=== PATIENT | female | born 1990 | race Caucasian/White ===

== ENCOUNTER 2016-07-24 16:42 | Inpatient (IN) | payer OTHER ==
[~2016-07-24] VITALS: Ht 160 cm; Wt 69.5 kg
[2016-07-24 18:31] VITALS: Ht 160 cm; Wt 69.5 kg
[2016-07-24 18:32] VITALS: BP 106/69; PULSE 85; RESP 16
[2016-07-24] MEDS ORDERED: ACETAMINOPHEN/CODEINE #3 TAB PO PRN (19:00)
[2016-07-24] MEDS ORDERED: BUTORPHANOL 2 MG INJ IV PRN (19:00)
[2016-07-24] MEDS ORDERED: OXYTOCIN 30 UNITS/LR 500 ML IV PRN (19:00)
[2016-07-24] MEDS ORDERED: METHYLERGONOVINE 0.2 MG INJ IM PRN (19:00)
[2016-07-24] MEDS ORDERED: LIDOCAINE 1% (MPF) 30 ML INJ INJ PRN (19:00)
[2016-07-24] MEDS ORDERED: MISOPROSTOL 200 MCG TAB PR PRN (19:00)
[2016-07-24] MEDS ORDERED: OXYTOCIN 30 UNITS/LR 500 ML IV SCH ×2 (19:00)
[2016-07-24] MEDS ORDERED: CARBOPROST 250 MCG INJ IM PRN (19:00)
[2016-07-24] MEDS ORDERED: IBUPROFEN 600 MG TAB PO PRN (19:00)
[2016-07-24] MEDS ORDERED: LACTATED RINGER'S 1,000 ML IV PRN (20:00)
--- NOTE | 2016-07-24 21:04 | HP ---
Date/Time of Note Date/Time of Note DATE: 07/24/16 TIME: 21:00 OB - History Hx of Present Chief Complaint: Non-reactive NST Estimated Due Date: July 28, 2016 : 3 Para: 2 Spontaneous : 0 Therapeutic : 0 Care: Good Care Ultrasounds: Normal mid trimester US Obstetrical Complications: None Medical Complications: None Past Family/Social History * Past Medical, Surgical, Family and Obstetric Histories reviewed from chart. GBS Status: Negative OB Admission Exam Vital Signs Vital Signs Vital Signs Date Time Temp Pulse Resp B/P Pulse Ox O2 Delivery O2 Flow Rate FiO2 07/24/16 18:32 98.8 85 16 106/69 Physical Exam HEENT: WNL Heart: Rhythm Normal Lungs: Clear Abdomen: WNL Extremities: Normal Cervical Dilatation: None Membranes: Intact Heart Rate: 120's Accelerations: Accelerations Present Decelerations: No Decelerations Varibility: Minimum OB Assessment/Plan Reason for admission: other (Non Reactive NST) Plan: Other (Admit, monitor, consider induction) AZUL CAMPBELL MD July 24, 2016 21:04
[2016-07-24] MEDS: LACTATED RINGER'S 1,000 ML IV SCH (21:10)
[2016-07-24 23:59] LABS: ADD SCAN DIFF NO
[2016-07-25 00:01] LABS: BASOPHILS % 0.2 % (0.0-2.0); EOSINOPHILS # 0.2 10^3/ul (0.0-0.5); EOSINOPHILS % 1.9 % (0.0-7.0); HEMATOCRIT 29.9 % (37.0-47.0); HEMOGLOBIN 9.9 g/dl (12.0-16.0); LYMPHOCYTES # 2.1 10^3/ul (0.8-2.9); LYMPHOCYTES % 24.8 % (15.0-51.0); MEAN CORPUSCULAR HEMOGLOBIN 28.4 pg (29.0-33.0); MEAN CORPUSCULAR HGB CONC 33.1 g/dl (32.0-37.0); MEAN CORPUSCULAR VOLUME 85.9 fl (82.0-101.0); MEAN PLATELET VOLUME 10.2 fl (7.4-10.4); MONOCYTE # 0.5 10^3/ul (0.3-0.9); MONOCYTES % 5.7 % (0.0-11.0); NEUTROPHIL # 5.8 10^3/ul (1.6-7.5); NEUTROPHILS % 66.9 % (39.0-77.0); PLATELET COUNT 280 10^3/UL (140-415); RED BLOOD COUNT 3.48 10^6/ul (4.20-5.40); RED CELL DISTRIBUTION WIDTH 13.9 % (11.5-14.5); WHITE BLOOD COUNT 8.6 10^3/ul (4.8-10.8)
[2016-07-25 00:24] LABS: INR 0.91; PARTIAL THROMBOPLASTIN TIME 27.5 Sec (25.0-35.0); PROTIME 12.3 Sec (12.2-14.2)
[2016-07-25] MEDS: LACTATED RINGER'S 1,000 ML IV SCH ×3 (02:12→14:13)
[2016-07-25] MEDS ORDERED: GUAIFENESIN/DM 5ML CUP PO PRN (11:00)
--- NOTE | 2016-07-25 12:15 | RADRPT ---
PROCEDURE: OB ultrasound for biophysical profile CLINICAL INDICATION: Poor tone. TECHNIQUE: Multiple sonographic images of the pelvis were obtained. Transabdominal views of the g ravid uterus are available for review. The images were reviewed on a PACS workstation. COMPARISON: None FINDINGS: breathing movement = 2/2 tone = 2/2 motion = 2/2 GUI = 2/2 GUI = 13.7 cm Single live intrauterine . position is cephalic. The placenta is posterior. IMPRESSION: 1. Single live intrauterine gestation. 2. Biophysical profile = 8. 3. GUI = 13.7 cm. RPTAT: HH .Pilar Garza MD, Date Time Electronically viewed and signed by .Pilar Garza MD, MD on 07/25/2016 12:14 .G/
[2016-07-25] MEDS: MISOPROSTOL 25 MCG CAPSULE PO SCH ×2 (14:10→17:52)
[2016-07-25] MEDS ORDERED: MISOPROSTOL 25 MCG CAPSULE PO SCH (17:00)
[2016-07-25] MEDS ORDERED: ONDANSETRON 4 MG INJ ONE (22:35)
[2016-07-25] MEDS ORDERED: CITRIC ACID/SODIUM CITRATE 15 ML CUP ONE (22:35)
[2016-07-25] MEDS ORDERED: FENTAnyl 2MCG/ML-ROPIV 0.2% 100 ML ONE (22:43)
[2016-07-25] MEDS ORDERED: LACTATED RINGER'S 1,000 ML IV ONE (23:35)
[2016-07-26] MEDS ORDERED: ONDANSETRON 4 MG INJ IV ONE
[2016-07-26] MEDS ORDERED: DIPHENHYDRAMINE 50 MG INJ IV PRN
[2016-07-26] MEDS ORDERED: KETOROLAC 30 MG INJ IV PRN
[2016-07-26] MEDS ORDERED: FENTAnyl 2MCG/ML-ROPIV 0.2% 100 ML BAG EPI SCH
[2016-07-26] MEDS ORDERED: NALOXONE (0.4 MG/ML) INJ IV PRN
[2016-07-26] MEDS ORDERED: CITRIC ACID/NA CITRATE 30 ML CUP PO ONE
[2016-07-26] MEDS ORDERED: PROCHLORPERAZINE 10 MG INJ IV PRN
[2016-07-26] MEDS ORDERED: ONDANSETRON 4 MG INJ IV PRN
[2016-07-26] MEDS ORDERED: morphine 2 MG INJ IV PRN ×2
--- NOTE | 2016-07-26 00:25 | LDN ---
Date/Time of Note Date/Time of Note DATE: 07/26/16 TIME: 00:21 Delivery Summary Weeks of Gestation 39 weeks and 4 days Placenta Delivered: Spontaneously Meconium: none Episiotomy: No Perineal laceration: 1 Laceration repair: Second degree laceration repaired with 3-0 Vicryl and 2-0 chromic. Anesthesia type: Epidural Estimated blood loss: 300 Sponge & Needle done & correct: Yes All needle counts correct: Yes Any foreign bodies felt in the: No Problems: Infant Delivery Information Sex Infant Sex: female Apgars 1 Minute: 9 5 Minute: 9 Suctioning Nose & mouth suctioned at ivanna: Yes Delee suction performed: No Umbilical Cord Umbilical cord with: 3 Vessels Cord presentations: no nuchal cord Cord Blood was obtained: Yes Mother & Baby Disposition Disposition Mom & Baby to Maternity; Good: Yes AZUL CAMPBELL MD July 26, 2016 00:25
[2016-07-26] MEDS: LACTATED RINGER'S 1,000 ML IV* SCH ×2 (01:57→09:57)
[2016-07-26] MEDS ORDERED: ACETAMINOPHEN/CODEINE #3 TAB PO PRN (02:00)
[2016-07-26] MEDS ORDERED: CARBOPROST 250 MCG INJ IM PRN (02:00)
[2016-07-26] MEDS ORDERED: ACETAMINOPHEN 325 MG TAB PO PRN (02:00)
[2016-07-26] MEDS ORDERED: OXYTOCIN 30 UNITS/LR 500 ML IV PRN (02:00)
[2016-07-26] MEDS ORDERED: DIBUCAINE 1% 30 GM OINT PR PRN (02:00)
[2016-07-26] MEDS ORDERED: METHYLERGONOVINE 0.2 MG INJ IM PRN (02:00)
[2016-07-26] MEDS ORDERED: MISOPROSTOL 200 MCG TAB PR PRN (02:00)
[2016-07-26] MEDS ORDERED: LANOLIN 7 GM TUBE TOP PRN (02:00)
[2016-07-26 02:30] VITALS: BP 121/80; PULSE 54; RESP 18
[2016-07-26 03:43] VITALS: BP 129/88; PULSE 80; RESP 18
[2016-07-26] MEDS: WITCH HAZEL/GLYCERIN PAD PR PRN (03:44)
[2016-07-26] MEDS: BENZOCAINE 20% 56 ML SPRAY TOP PRN (03:44)
[2016-07-26] MEDS: IBUPROFEN 600 MG TAB PO SCH ×3 (06:23→18:11)
[2016-07-26 06:30] LABS: ADD SCAN DIFF NO
[2016-07-26 06:51] LABS: BASOPHILS % 0.2 % (0.0-2.0); EOSINOPHILS % 0.2 % (0.0-7.0); HEMATOCRIT 31.9 % (37.0-47.0); HEMOGLOBIN 10.4 g/dl (12.0-16.0); LYMPHOCYTES # 1.5 10^3/ul (0.8-2.9); LYMPHOCYTES % 11.9 % (15.0-51.0); MEAN CORPUSCULAR HEMOGLOBIN 28.1 pg (29.0-33.0); MEAN CORPUSCULAR HGB CONC 32.6 g/dl (32.0-37.0); MEAN CORPUSCULAR VOLUME 86.2 fl (82.0-101.0); MEAN PLATELET VOLUME 10.8 fl (7.4-10.4); MONOCYTE # 0.7 10^3/ul (0.3-0.9); MONOCYTES % 5.3 % (0.0-11.0); NEUTROPHIL # 10.6 10^3/ul (1.6-7.5); PLATELET COUNT 257 10^3/UL (140-415); RED CELL DISTRIBUTION WIDTH 13.8 % (11.5-14.5); WHITE BLOOD COUNT 12.9 10^3/ul (4.8-10.8)
[2016-07-26 08:45] VITALS: BP 121/70; PULSE 54; RESP 17
[2016-07-26] MEDS: SENNA/DOCUSATE NA (8.6MG/50MG) TAB PO SCH ×2 (08:49→21:33)
[2016-07-26 12:00] VITALS: BP 117/79; PULSE 64; RESP 17
[2016-07-26 17:30] VITALS: BP 121/72; PULSE 64; RESP 17
--- NOTE | 2016-07-26 18:19 | QN ---
Documentation Comment pt doing well ppd1 vss exam wnl a/p ppd1 continue care NANDA STONER MD July 26, 2016 18:19
[2016-07-26] MEDS ORDERED: SALINE 0.65% 45 ML NAS SPRAY NASAL PRN (18:30)
[2016-07-26 20:10] VITALS: BP_SYST 121; PULSE 67; RESP 18
[2016-07-27 04:10] VITALS: BP 111/78; PULSE 77; RESP 18
[2016-07-27] MEDS: IBUPROFEN 600 MG TAB PO SCH ×4 (05:43→17:30)
[2016-07-27 07:30] VITALS: BP 124/85; PULSE 60; RESP 18
[2016-07-27] MEDS: SENNA/DOCUSATE NA (8.6MG/50MG) TAB PO SCH ×2 (08:29→21:00)
--- NOTE | 2016-07-27 13:08 | DS ---
Date/Time of Note Date/Time of Note DATE: 07/27/16 TIME: 13:07 Obstetrical Discharge Record Final Diagnosis Final Diagnosis: Term delivered Vaginal Delivery Obstetrical Delivery: Spontaneous, Laceration, Repaired Complications Induction: Yes Condition on Discharge Physical Assessment Voiding: Yes Bowel Movement: Yes Breast: Soft, non-tender Fundus: Firm Calf Tenderness: No Patient Condition: Stable AZUL CAMPBELL MD July 27, 2016 13:08
[2016-07-27 16:55] VITALS: BP 123/83; PULSE 63; RESP 14
[2016-07-27 20:15] VITALS: BP 126/88; PULSE 67; RESP 19
[2016-07-28] MEDS: IBUPROFEN 600 MG TAB PO SCH ×3 (00:16→12:43)
[2016-07-28 05:08] VITALS: BP 123/78; RESP 20
[2016-07-28 08:00] VITALS: BP 122/71; PULSE 63; RESP 18
[2016-07-28] MEDS: SENNA/DOCUSATE NA (8.6MG/50MG) TAB PO SCH (09:00)
[2016-07-28] MEDS ORDERED: DIPHTH/TET/ACEL PERTUSS (ADULT) 0.5 ML VIAL IM* ONE (09:00)
[2016-07-28] MEDS: BENZOCAINE 20% 56 ML SPRAY TOP PRN (12:43)
[2016-07-28] MEDS: WITCH HAZEL/GLYCERIN PAD PR PRN (12:44)
--- NOTE | 2016-07-28 21:41 | NSTRPT ---
NST Information Datetime Report Generated by CPN: 07/28/2016 21:41 Datetime: 07/24/2016 13:13 NST Information EGA: 39.3 Test Number: 5 Time on Monitor: 07/24/2016 13:30 Time off Monitor: 07/24/2016 15:52 NST Duration (Min): 142 Reason for NST: Other Reason for NST Other: Low Unconjugated Estriol Test and Monitor Explained: Monitor Explained; Test Explained; Verbalized Understanding Pulse: 80 Resp: 18 SBP: 106 DBP: 67 Test Evaluation NST Interventions: PO Hydration; Food Given; Reposition Patient; Acoustic Stimulation Patient States Movement: Decreased Contraction Frequency: occasional FHR Baseline : 125 Variability: Moderate 6-25bpm Accelerations: 15X15 Decelerations: None FHR Category: Category I NST Results: Reactive Provider Notified: Dr Tong paged [phone] Comments: To u/s, Report given to Dr Tong that FHTs are reactive after two hours of monitoring, that pt is complaining of head congestion and emesis today. Electronically Signed By E-Signature: with User ID: [id number] Datetime: 07/21/2016 13:03 NST Information EGA: 39.0 Test Number: 4 Time on Monitor: 07/21/2016 13:33 Time off Monitor: 07/21/2016 14:10 NST Duration (Min): 37 Reason for NST: Other Reason for NST Other: Low Unconjugated Estriol Test and Monitor Explained: Monitor Explained; Test Explained; Verbalized Understanding Pulse: 71 Resp: 16 SBP: 108 DBP: 71 Test Evaluation NST Interventions: Reposition Patient; Acoustic Stimulation Patient States Movement: Present Contraction Frequency: x1, denies FHR Baseline : 120 Variability: Moderate 6-25bpm Accelerations: 15X15 Decelerations: None FHR Category: Category I NST Results: Reactive Comments: To u/s, GUI 11.1cm, cephalic 1412-Pt home undelivered with labor precautions, kick count instructions reviewed and follo w up NST appt given. States understanding and denies further questions at this time. Electronically Signed By E-Signature: with User ID: [id number] Datetime: 07/17/2016 13:14 NST Information EGA: 38.3 NST Duration (Min): 36 Datetime: 07/14/2016 13:05 NST Information EGA: 38.0 NST Duration (Min): 58 Datetime: 07/10/2016 13:29 NST Information EGA: 37.3 Datetime: 07/10/2016 13:12 NST Duration (Min): 26
--- NOTE | 2016-07-28 21:43 | NSTRPT ---
NST Information Datetime Report Generated by CPN: 07/28/2016 21:43 Datetime: 07/14/2016 13:05 Electronically Signed By E-Signature: with User ID: [id number]
== END 2016-07-28 18:13 | disposition home or self-care (01) | DRG 775 ==
LOC: EDSTATUS 17:07 → L-D 18:12 → PP1 07-26 02:27
PROVIDERS: ADMIT Obstetrics & Gynecology; ATTEND Obstetrics & Gynecology
PROC: 10E0XZZ Delivery of Products of Conception, External Approach (ICD-10-PCS; principal; 2016-07-26)
PROC: 0KQM0ZZ Repair Perineum Muscle, Open Approach (ICD-10-PCS; 2016-07-26)
DX: O70.1 Second degree perineal laceration during delivery (principal); Z37.0 Single live birth; Z3A.39 39 weeks gestation of pregnancy
CPT/HCPCS: 62319; 76818; 85025; 85610; 85730; 86592; 86900; 86901; 87340; 90715; J2405; J2590; J3010; J7120

== ENCOUNTER 2016-10-27 08:55 | Day surgery (SDC) | payer OTHER ==
[~2016-10-27] VITALS: Ht 157.5 cm; Wt 66.0 kg
[2016-10-27] VITALS (9 sets, daily range): BP systolic 108–134; BP diastolic 69–85; PULSE 50–58; RESP 16–25; Ht 157.5 cm; Wt 66.0 kg
[~2016-10-27 08:55] MED LIST: CEFAZOLIN 2 GM/50 ML (PMX) 50 ML IVPB SCH; LACTATED RINGER'S 1,000 ML IV* SCH
[2016-10-27 09:57] LABS: BASOPHILS % 0.3 % (0.0-2.0); EOSINOPHILS # 0.1 10^3/ul (0.0-0.5); EOSINOPHILS % 2.4 % (0.0-7.0); HEMOGLOBIN 12.8 g/dl (12.0-16.0); LYMPHOCYTES # 2.1 10^3/ul (0.8-2.9); LYMPHOCYTES % 35.4 % (15.0-51.0); MEAN CORPUSCULAR HEMOGLOBIN 28.4 pg (29.0-33.0); MEAN CORPUSCULAR HGB CONC 32.8 g/dl (32.0-37.0); MEAN CORPUSCULAR VOLUME 86.5 fl (82.0-101.0); MEAN PLATELET VOLUME 9.7 fl (7.4-10.4); MONOCYTE # 0.3 10^3/ul (0.3-0.9); MONOCYTES % 4.8 % (0.0-11.0); NEUTROPHILS % 56.9 % (39.0-77.0); PLATELET COUNT 370 10^3/UL (140-415); RED BLOOD COUNT 4.51 10^6/ul (4.20-5.40); RED CELL DISTRIBUTION WIDTH 13.2 % (11.5-14.5); WHITE BLOOD COUNT 5.9 10^3/ul (4.8-10.8)
[2016-10-27] MEDS ORDERED: LIDOCAINE 2% (SDV) 5 ML INJ ONE (10:07)
[2016-10-27] MEDS ORDERED: SUCCINYLCHOLINE CHLORIDE 100 MG/5 ML SYG IV ONE (10:07)
[2016-10-27] MEDS ORDERED: PROPOFOL 20 ML ONE (10:07)
[2016-10-27] MEDS ORDERED: ROCURONIUM 50 MG INJ ONE (10:07)
[2016-10-27] MEDS ORDERED: MIDAZOLAM 1 MG/ML 2 ML INJ ONE (10:07)
[2016-10-27] MEDS ORDERED: FENTAnyl 50 MCG/ML VIAL ONE (10:08)
[2016-10-27 10:24] LABS: INR 0.9; PARTIAL THROMBOPLASTIN TIME 26.2 Sec (25.0-35.0); PROTIME 12.1 Sec (12.2-14.2); PT RATIO 0.9
[2016-10-27] MEDS ORDERED: OXYCODONE/ACETAMINOPHEN (5/325) TAB PO PRN ×2 (10:30)
[2016-10-27] MEDS ORDERED: MEPERIDINE 25 MG INJ IV PRN (10:30)
[2016-10-27] MEDS ORDERED: FENTAnyl 50 MCG/ML VIAL IV PRN (10:30)
[2016-10-27] MEDS ORDERED: DIPHENHYDRAMINE 50 MG INJ IV PRN (10:30)
[2016-10-27] MEDS ORDERED: PROCHLORPERAZINE 10 MG INJ IV PRN (10:30)
[2016-10-27] MEDS ORDERED: ONDANSETRON 4 MG INJ IV PRN ×2 (10:30→12:30)
[2016-10-27] MEDS ORDERED: HYDROmorphONE (0.2 MG/ML) 10ML SYG IV PRN ×2 (10:30)
[2016-10-27] MEDS ORDERED: METOCLOPRAMIDE 10 MG INJ ONE (10:47)
[2016-10-27] MEDS ORDERED: DEXAMETHASONE 4 MG/ML 1 ML INJ ONE (10:47)
[2016-10-27] MEDS ORDERED: ONDANSETRON 4 MG INJ ONE (10:47)
[2016-10-27] MEDS ORDERED: BUPIVACAINE 0.5%/EPI (SDV) 10 ML INJ ONE (10:55)
[2016-10-27] MEDS ORDERED: KETOROLAC 30 MG INJ ONE (11:14)
[2016-10-27] MEDS ORDERED: CEFAZOLIN 1 GM INJ ONE (11:18)
[2016-10-27] MEDS ORDERED: NEOSTIGMINE 3 MG/3 ML SYRINGE ONE (11:22)
[2016-10-27] MEDS ORDERED: GLYCOPYRROLATE 0.4 MG INJ ONE (11:22)
--- NOTE | 2016-10-27 12:09 | SIPON ---
Date/Time of Note Date/Time of Note DATE: 10/27/16 TIME: 12:07 Operative Report Preoperative Diagnosis Voluntary Sterilization Postoperative Diagnosis Same Operation/Procedure Performed Minilaparotomy, BTL Surgeon: AZUL CAMPBELL MD Anesthesia Type: general Estimated Blood Loss: minimal Transfusion Required: no Specimens right and left Fallopian tubes Grafts/Implants: none Complications: no AZUL CAMPBELL MD Oct 27, 2016 12:09
[2016-10-27] MEDS ORDERED: morphine 2 MG INJ IV PRN (12:30)
[2016-10-27] MEDS ORDERED: HYDROCODONE/APAP (5/325) TAB PO PRN (12:30)
[2016-10-27] MEDS ORDERED: KETOROLAC 30 MG INJ IV PRN (12:30)
--- NOTE | 2016-10-27 22:55 | PREOPHP ---
DATE OF ADMISSION: 10/27/2016 HISTORY OF PRESENT ILLNESS: A 25-year-old female, 3, para 3, last menstrual period October 13, 2016, is admitted for voluntary sterilization. PAST MEDICAL HISTORY: Unremarkable. PAST SURGICAL HISTORY: Removal of cyst from the groin. FAMILY HISTORY: Noncontributory. ALLERGIES: NO KNOWN ALLERGIES. PHYSICAL EXAMINATION: VITAL SIGNS: Patient is afebrile. Vital signs stable. HEENT: Examination of head within normal limits. NECK: Within normal limits. CHEST: Within normal limits. ABDOMEN: Soft, nontender, nondistended. PELVIC EXAMINATION: Normal. EXTREMITIES: Within normal limits. NEUROLOGIC: Within normal limits. IMPRESSION: Voluntary sterilization. PLAN: Mini-laparotomy, bilateral tubal ligation. Risks, benefits, and alternatives of the procedure were explained to the patient. Patient has been counseled about all of her contraceptive options, including all methods of sterilization. It was explained to the patient that with bilateral tubal ligation, there is a chance of failure, resulting in ectopic and/or intrauterine . After counseling, patient said she understood and gave informed consent for the procedure. Dictated By: Dima Tong MD /gladys/eliseo /Document#: [id number]
--- NOTE | 2016-10-28 08:12 | OPR ---
DATE OF OPERATION: 10/27/2016 PREOPERATIVE DIAGNOSIS: Voluntary sterilization. POSTOPERATIVE DIAGNOSIS: Voluntary sterilization. OPERATION PERFORMED: Mini-laparotomy and bilateral tubal ligation. SURGEON: Dima Tong MD POWER CLEANER OPERATOR: pest control chemical technician. ANESTHESIA: General. ANESTHESIOLOGIST: . OPERATION PERFORMED: Patient was taken to the operating room and placed on the operating table in supine position after adequate general anesthesia was given. The area was prepared and draped in the usual sterile fashion. Using a scalpel, a Pfannenstiel incision was made about 2 fingerbreadths above the symphysis pubis. The incision was carried to the fascia. The fascia was incised and extended bilaterally with the Bovie. Two Kochers were used to separate the fascia from the muscle. The muscle was dissected down to peritoneum. The peritoneum was secured with Kellys and incised with Metzenbaum scissors. The right fallopian tube was grasped with a Antonio clamp and followed to its fimbriated end . Using 0 chromic suture, a 5-cm segment of the right fallopian tube was doubly ligated. Using Metzenbaum scissors, a portion of the right fallopian tube above the ligated area was excised and sent to pathology. The same procedure was repeated on the left fallopian tube. After assuring hemostasis, the peritoneum was closed with 0 chromic. The fascia was closed with 0 Vicryl continuous. Subcutaneous tissue was reapproximated with 0 chromic. The skin was closed with yamile. Estimated blood loss minimal. All counts were correct. Dictated By: Dima Tong MD /gladys/eliseo /Document#: [id number]
== END 2016-10-27 16:30 | disposition home or self-care (01) ==
LOC: SDS 08:55
PROVIDERS: ATTEND Obstetrics & Gynecology
DX: Z30.2 Encounter for sterilization (principal)
CPT/HCPCS: 58600; 84703; 85025; 85610; 85730; 86850; 86870; 86900; 86901; 86902; 88302; J0690; J1100; J1885; J2175; J2250; J2405; J2710; J2765; J3010; Z7512; Z7610; J7999